=== PATIENT | male | born 1980 | race Caucasian/White ===

== ENCOUNTER 2019-12-30 00:03 | Emergency (ER) | payer SELFPAY ==
[~2019-12-30] VITALS: Ht 170.2 cm; Wt 90.7 kg
--- NOTE | 2019-12-30 00:10 | NUR ---
PT RORYRA FROM HOME C/O ABDOMINAL PRESSURE X3 DAYS. PT ALSO C/O NAUSEA AND VOMITTING. PT AAOX4, TAJIK SPEAKING. VITAL SIGNS STABLE. RESPIRATIONS EVEN AND UNLABORED. SKIN WARM AND INTACT. NO ACUTE DISTRESS NOTED AT THIS TIME. PLACED ON MONITOR, WILL CONTINUE TO MONITOR
[2019-12-30] MEDS ORDERED: IV LR 1000 ML 1,000 ML IV ONE (00:25)
[2019-12-30] MEDS ORDERED: ONDANSETRON HCL/PF 4 MG/2 ML VIAL IVP ONE (00:30)
[2019-12-30] MEDS ORDERED: ONDANSETRON HCL/PF 4 MG/2 ML VIAL ONE (00:34)
--- NOTE | 2019-12-30 00:38 | NUR ---
IV INITIATED RAC 18G. LABS DRAWN FROM SITE. TENNIS PROFESSIONAL AT BEDSIDE FOR COLLECTION. IV INTACT AND PATENT, PLACED ON SALINE LOCK
[2019-12-30 00:54] LABS: BASOPHILS # (AUTO) 0.1 /CMM (0.0-0.2); BASOPHILS % (AUTO) 0.9 % (0.0-2.0); EOSINOPHILS % (AUTO) 1.7 % (0.0-6.0); HEMATOCRIT 48 % (39-51); HEMOGLOBIN 16.7 g/dL (13.5-17.5); MEAN CORPUSCULAR HGB CONC 35 g/dl (31.0-36.0); MEAN CORPUSCULAR VOLUME 84 fL (80-96); MONOCYTES # (AUTO) 0.8 /CMM (0.1-1.30); MONOCYTES % (AUTO) 9.2 % (2.0-12.0); NEUTROPHILS # (AUTO) 4.8 /CMM (1.8-8.9); NEUTROPHILS % (AUTO) 54.2 % (43.0-81.0); PLATELET COUNT (AUTO) 238 /CMM (150-450); RED BLOOD CELL COUNT(AUTO) 5.75 MIL/uL (4.5-6.0); WHITE BLOOD COUNT (AUTO) 8.8 K/uL (4.3-11.0)
[2019-12-30] MEDS ORDERED: HYDROMORPHONE 1 MG/1 ML DISP.SYRIN IV ONE (01:00)
--- NOTE | 2019-12-30 01:00 | NUR ---
PER VERBAL MD ORDER, PT NOT C/O PAIN AT THIS TIME. WILL HOLD DILAUDID 1MG IV
[2019-12-30] MEDS ORDERED: IOHEXOL-300 100 ML VIAL IV ONE (01:11)
[2019-12-30] MEDS ORDERED: IV NS 0.9% 250 ML IV ONE (01:12)
--- NOTE | 2019-12-30 01:20 | NUR ---
PT UNABLE TO PROVIDE URINE SAMPLE AT THIS TIME. MD GILES
[2019-12-30 01:24] LABS: ALANINE AMINOTRANSFERASE 46 U/L (12-78); ALBUMIN 4.1 g/dL (3.4-5.0); ALKALINE PHOSPHATASE 77 U/L (46-116); ASPARTATE AMINOTRANSFERASE 17 U/L (15-37); BILIRUBIN,DIRECT 0.1 mg/dL (0.0-0.2); BILIRUBIN,TOTAL 0.3 mg/dL (0.2-1.0); CALCIUM, SERUM 8.9 mg/dL (8.5-10.1); CARBON DIOXIDE 25 mmol/L (21-32); CHLORIDE 103 mmol/L (98-107); CREATININE 1.1 mg/dL (0.6-1.3); GLUCOSE 128 mg/dL (74-106); LIPASE 140 U/L (73-393); POTASSIUM 3.4 mmol/L (3.5-5.1); SODIUM SERUM 139 mmol/L (136-145); TOTAL PROTEIN, SERUM 7.7 g/dL (6.4-8.2); UREA NITROGEN, BLOOD 12 mg/dL (7-18)
--- NOTE | 2019-12-30 01:31 | NUR ---
COVID SWAB COLLECTED AND SENT TO LAB
--- NOTE | 2019-12-30 01:31 | NUR ---
US AT BEDSIDE
--- NOTE | 2019-12-30 01:37 | NUR ---
JESENIA (SISTER) CONTACT INFORMATION: [phone]
--- NOTE | 2019-12-30 02:12 | NUR ---
PT BROUGHT BY RADIOLOGY TO CT
[2019-12-30 03:32] LABS: APPEARANCE,URINE CLEAR (CLEAR); BILIRUBIN,URINE NEGATIVE (NEGATIVE); BLOOD, URINE NEGATIVE Ery/uL (NEGATIVE); COLOR,URINE YELLOW (YELLOW); KETONES,URINE NEGATIVE (NEGATIVE); LEUKOCYTE ESTERASE ,URINE NEGATIVE (NEGATIVE); NITRITE, URINE NEGATIVE (NEGATIVE); PROTEIN,URINE NEGATIVE (NEGATIVE); UGLUCOSE NEGATIVE (NEGATIVE)
[2019-12-30 03:40] LABS: BACTERIA,URINE None seen /HPF (None Seen); RBC,URINE 0-2 /HPF (0-2); SQUAMOUS EPITHELIAL CELL,UR Rare /HPF (None Seen); WBC,URINE 0-2 /HPF (0-3)
[2019-12-30 03:41] LABS: URINE AMORPHOUS URATE Few /HPF (None Seen)
--- NOTE | 2019-12-30 03:50 | NUR ---
RN INTEGRATED AT BEDSIDE FOR REPEAT TROPONIN
--- NOTE | 2019-12-30 04:03 | NUR ---
RADIOLOGY AT BEDSIDE FOR CXR
--- NOTE | 2019-12-30 05:26 | NUR ---
Patient discharged to home in stable condition. Written and verbal after care instructions given. Patient verbalizes understanding of instruction.IV removed. Catheter intact and site benign. Pressure and 4x4 applied to site. No bleeding noted.Pt ambulatory with a steady gait
[2019-12-30 05:27] VITALS: BP 103/77
== END 2019-12-30 05:28 | disposition home or self-care (01) ==
LOC: ER 00:06
DX: R11.2 Nausea with vomiting, unspecified (principal); R07.9 Chest pain, unspecified; R10.31 Right lower quadrant pain; R16.0 Hepatomegaly, not elsewhere classified; R03.0 Elevated blood-pressure reading, without diagnosis of hypertension; F17.200 Nicotine dependence, unspecified, uncomplicated; Z20.828 Contact with and (suspected) exposure to other viral communicable diseases
CPT/HCPCS: 36415; 71045; 74177; 76705; 80048; 80076; 81001; 83690; 84484 ×2; 85025; 93005; 96361; 96374; 99285; 99406; C9803; J2405; J7050; J7120 ×2; Q9967; U0003; 81000-TC

== ENCOUNTER 2020-12-24 21:43 | Emergency (ER) | payer SELFPAY ==
[~2020-12-24] VITALS: Ht 165.1 cm; Wt 99.8 kg
--- NOTE | 2020-12-24 21:50 | NUR ---
EMT @ BEDSIDE FOR EKG
--- NOTE | 2020-12-24 21:55 | NUR ---
PT BIBRA 102 FROM HOME WITH C/O GEN ABD PAIN RADIATING TO EPIGASTRIC AREA X2HRS. PT ALERT AND ORIENTED X3. AMBULATORY WITH NON LABORED BREATHING.
[2020-12-24] MEDS ORDERED: MORPHINE SULFATE INJ 2 MG/ML DISP.SYRIN ONE (22:21)
[2020-12-24] MEDS ORDERED: ONDANSETRON HCL/PF 4 MG/2 ML VIAL ONE (22:21)
[2020-12-24] MEDS: ONDANSETRON HCL/PF 4 MG/2 ML VIAL IVP ONE (22:30)
[2020-12-24] MEDS: IV NS 0.9% 500 ML BAG IV ONE (22:30)
[2020-12-24] MEDS: MORPHINE SULFATE INJ 2 MG/ML DISP.SYRIN IV ONE (22:30)
[2020-12-24 22:32] LABS: BACTERIA,URINE Rare /HPF (None Seen); BILIRUBIN,URINE Negative (NEGATIVE); COLOR,URINE YELLOW (YELLOW); LEUKOCYTE ESTERASE ,URINE Negative (NEGATIVE); NITRITE, URINE Negative (NEGATIVE); PROTEIN,URINE Negative (NEGATIVE); RBC,URINE NONE SEEN /HPF (0-2); SQUAMOUS EPITHELIAL CELL,UR Few /HPF (None Seen); UGLUCOSE Negative (NEGATIVE); UROBILINOGEN,URINE 0.2 EU/dL (0.2); WBC,URINE NONE SEEN /HPF (0-3)
[2020-12-24 22:42] LABS: BASOPHILS # (AUTO) 0.1 K/uL (0.0-0.2); BASOPHILS % (AUTO) 1.4 % (0.0-2.0); EOSINOPHILS % (AUTO) 1.7 % (0.0-6.0); HEMATOCRIT 46 % (39-51); HEMOGLOBIN 16.3 g/dL (13.5-17.5); LYMPHOCYTES # (AUTO) 2.6 K/uL (0.8-4.8); LYMPHOCYTES % (AUTO) 31.1 % (20.0-44.0); MEAN CORPUSCULAR HGB CONC 36 g/dl (31.0-36.0); MEAN CORPUSCULAR VOLUME 83 fL (80-96); MONOCYTES # (AUTO) 0.8 K/uL (0.1-1.30); MONOCYTES % (AUTO) 10.1 % (2.0-12.0); NEUTROPHILS # (AUTO) 4.6 K/uL (1.8-8.9); NEUTROPHILS % (AUTO) 55.7 % (43.0-81.0); PLATELET COUNT (AUTO) 251 K/uL (150-450); RED BLOOD CELL COUNT(AUTO) 5.55 MIL/uL (4.5-6.0); WHITE BLOOD COUNT (AUTO) 8.2 K/uL (4.3-11.0)
--- NOTE | 2020-12-24 22:48 | NUR ---
BACK FROM CT.
[2020-12-24 22:53] LABS: CALCIUM, SERUM 8.9 mg/dL (8.5-10.1); CARBON DIOXIDE 24 mmol/L (21-32); CHLORIDE 103 mmol/L (98-107); CREATININE 0.9 mg/dL (0.6-1.3); GLUCOSE 151 mg/dL (74-106); POTASSIUM 3.9 mmol/L (3.5-5.1); SODIUM SERUM 139 mmol/L (136-145); UREA NITROGEN, BLOOD 13 mg/dL (7-18)
[2020-12-24 23:00] LABS: ALANINE AMINOTRANSFERASE 96 U/L (12-78); ALBUMIN 4.3 g/dL (3.4-5.0); ALKALINE PHOSPHATASE 74 U/L (46-116); ASPARTATE AMINOTRANSFERASE 28 U/L (15-37); BILIRUBIN,DIRECT 0.1 mg/dL (0.0-0.2); BILIRUBIN,TOTAL 0.2 mg/dL (0.2-1.0); LIPASE 126 U/L (73-393); TOTAL PROTEIN, SERUM 8.3 g/dL (6.4-8.2)
--- NOTE | 2020-12-25 00:03 | NUR ---
Patient discharged to home in stable condition. Written and verbal after care instructions given. Patient verbalizes understanding of instruction.
[2020-12-25 00:04] VITALS: BP 143/87
[2020-12-25] MEDS ORDERED: DICY10CA37 PO (00:08)
[2020-12-25] MEDS ORDERED: ONDA4TAB5 PO (00:08)
[2020-12-25] MEDS ORDERED: DICYCLOMINE HCL INJ 20 MG/2 ML AMPUL IM ONE (00:10)
[2020-12-25] MEDS: DICYCLOMINE HCL INJ 20 MG/2 ML AMPUL IM ONE (00:17)
== END 2020-12-25 00:36 | disposition home or self-care (01) ==
LOC: ER 21:46
DX: K52.9 Noninfective gastroenteritis and colitis, unspecified (principal); Z79.899 Other long term (current) drug therapy
CPT/HCPCS: 36415; 71045; 74176; 80048; 80076; 81001; 83690; 84484; 85025; 85730; 93005; 96361; 96372; 96374; 96375; 99285; J0500; J2270; J2405; J7030